=== PATIENT | female | born 1975 | race Caucasian/White ===

== ENCOUNTER 2024-02-28 05:16 | Inpatient (IN) | payer OTHER, SELFPAY ==
[2024-02-27 23:08] VITALS: BMI 29.6
[2024-02-27 23:09] VITALS: BP 150/80
[2024-02-28 02:00] VITALS: BP 123/68
--- NOTE | 2024-02-28 02:03 | ED.GENMED ---
History of Present Illness
General
Chief Complaint: Urinary Symptoms
Source: patient
Exam Limitations: none
Time Seen by Provider: 02/28/24 01:26
History of Present Illness
History of Present Illness:
This is a 48 year old female that comes in with c/o constipation and not being able to urinate. States that she has the urge to go but can't go. States that she has had trouble ever since her surgery on January 15. States that she has had some liquid
stool that just squirts out. States that she tried an enema but this was very difficult. States that she has a headache. Denies any fever, chills, chest pain, SOB, nausea, vomiting, dizziness, urinary burning.
Past History
Past History
ED Past Medical History: None; Negative Asthma, HTN, Hypercholesterolemia or NIDDM
ED Past Surgical History: Gynecological (Uterine ablation), Orthopedic (Carpal tunnel right) and Other (Hemorrhoidectomy 2023)
Social History
Tobacco: Former smoker
Alcohol: None
Personal:
Living: with family
Review of Systems
Review of Systems
All Other Systems: ROS reviewed and negative except as documented in HPI and ROS
Constitutional: Reports no symptoms; Denies fever or chills
EENT: Reports no symptoms
Respiratory: Reports no symptoms; Denies cough or trouble breathing
Cardiac: Reports no symptoms; Denies chest pain
ABD/GI: Reports abdominal pain and constipated; Denies nausea, vomiting or diarrhea
: Reports difficulty voiding; Denies dysuria, frequency or urgency
Musculoskeletal: Reports no symptoms
Skin: Reports no symptoms
Neurological: Reports headache; Denies dizzy
Psychiatric: Reports no symptoms
Phy Exam
General Physical Exam
General Presentation: mild distress
General age: appears stated age
General Skin: warm and dry
General Habitus: normal
General Mental: alert
General Hydration: appears well hydrated
ENT Exam
ENT Exam: TM's normal, pharynx normal and neck supple
Eye Exam
Eye Exam: EOMI
Cardiovascular Exam
Cardiovascular Exam: regular rate/rhythm, no edema, no murmur and normal peripheral pulses
Pulmonary Exam
Pulmonary Exam: lungs clear, no respiratory distress, no rales, chest non tender, no crackles, no rhonchi, no wheezing and no cough
Gastrointestinal Exam
Gastrointestinal Exam: normal bowel sounds, non tender, soft, no organomegaly, no pulsatile mass, non distended and other (attempted rectal exam but unable to fit finger in rectal opening. )
Musculoskeletal Exam
Musculoskeletal Exam: full ROM and no edema
Skin Exam
Skin Exam: normal color, warm/dry, no rash and no petechia
Psychiatric Exam
Psychiatric Exam: normal mood/affect
Course
Orders/Labs/Results
Orders:
Orders
02/28/24 02:02
Obstruct Series W/PA Chest [CR Obstruct Series W/pa Chest] Urgent
Comment:
Reason For Exam: constipation, NO BP for 9 days.
02/28/24 02:03
Livingston Placement- Treatment ONCE
Reason for insertion: Acute Retention
02/28/24 02:06
Complete Blood Count/With Diff Urgent
Comprehensive Metabolic Panel Urgent
Urinalysis Reflex To Culture Urgent
Date Specimen was Collected: 02/28/24
Time Specimen was Collected: 02:05
Urine Microscopic Reflex Cult Urgent
Urine Culture Urgent
BELKIS Source: U
Specimen Description:
Date Specimen was Collected: 02/28/24
Time Specimen was Collected: 02:05
02/28/24 03:10
Enema- Treatment ONCE
Type: Milk of Molasses
02/28/24 03:44
CefTRIAXone [Rocephin] 1,000 mg IV NOW STA
02/28/24 04:22
CT Abd/pelvis W Iv Cont Urgent
Comment:
Reason For Exam: Constipation. abd pain
Abnormal Lab Results
02/28/24
02:06
WBC 11.5 H 10^3/uL
(4.8-10.8)
MPV 11.3 H fL
(7.4-10.4)
Absolute Neuts (auto) 7.4 H 10^3/uL
(1.4-6.5)
Absolute Monos (auto) 1.1 H 10^3/uL
(0.1-0.6)
Monocytes % 9.8 H %
(1.7-9.3)
Glucose 109 H mg/dl
(70-99)
Total Bilirubin 2.3 H mg/dl
(0.2-1.3)
Ur Occult Blood Reflex Trace A
(Negative)
Urine WBC (Reflex) >100 A /HPF
(0-5)
Urine Bacteria (Reflex) Many A
(Negative)
02/28/24 02:06
02/28/24 02:06
WBC Slightly elevated. Glucose nonfasting. Total georgina elevation. Urine negative for infection. Urine positive for infection.
Vital Signs
Initial and Last Documented VS:
Initial Vital Signs
Temp Pulse Resp BP Pulse Ox
97.7 F 102 18 150/80 99
02/27/24 23:09 02/27/24 23:09 02/27/24 23:09 02/27/24 23:09 02/27/24 23:09
Last Documented Vital Signs
Temp Pulse Resp BP Pulse Ox
97.7 F 89 20 123/68 97
02/27/24 23:09 02/28/24 02:00 02/28/24 02:00 02/28/24 02:04 02/28/24 02:45
MDM/Problems Addressed
Differential Diagnosis Includes:
Urinary retention. Constipation
MDM/Problems Addressed:
This is a 48 year old female that comes in with c/o constipation and not being able to urine. States that since her surgery on January 15 she has had difficulty urinating of Pooping. States that tonight she had lower abd pain.
will check. labs. Bladder scan and Obstruction series.
patient had urinary retention to livingston catheter was placed. There is a large stool ball in the rectal area noted. Will give enema.
Patient is unable to have a BM even after the enema. Patient continues to have bowel spasm and has not been able to go. Will admit and get CT scan.
Chronic conditions affecting care:
NA
Acute Exacerbation and/or Progression of Chronic Illness:
NA
*Radiology
Radiology exam reviewed: preliminary read by ED provider (Obstruction series- Negative for cardiopulmonary disease. Constipation)
*Pulse Oximetry
Patient hypoxic: no
*EKG
Interpreted by ED Provider?: NA
Rate: EKG- N/A
*Carburizing Furnace Operator Interpretation
Rate: Carburizing Furnace Operator- N/A
*Critical Care Note
Total Time (30-74mins, 75-104mins- exclusive of procedures): Not Applicable
ED Attending Note
-
Portions of this chart may have been created with voice recognition software.� Occasional wrong word or��sound alike� substitutions may have occurred due to the inherent limitations of voice recognition software.
Discharge Plan
Departure
Patient Disposition: Admit
Date of Disposition: 02/28/24
Time of Disposition: 04:29
Admit to: Med/Surg
Presentation/result/management discussed w/ accepting MD/DO: Hospitalist
Patient with high blood pressure during this ER visit?: No
Condition: Good
Covid-19: Not Applicable
Discharge Problem:
Acute urinary retention, Urinary tract infection, Spasm of bowel, Obstipation
Prescriptions:
New
cefdinir 300 mg capsule
300 mg PO BID Qty: 14 0RF
Referrals:
PRIVATE,PHYSICIAN [Family Provider] -
Interventions
Interventions:
ED- Fall Risk Assessment Last Done: 02/28/24 02:08
HW-Tmqssg-Pyldcwasbl Assessment Last Done: 02/28/24 02:08
ED-Female Genitourinary Assessment Last Done: 02/28/24 02:08
Discharge Date and Time
Print Language: SCOTTISH
[2024-02-28 02:04] VITALS: BP 123/68
[2024-02-28 02:24] LABS: % Basophils 0.5 % (0-2); % Eosinophils 0.7 % (0-6); % Immature Granulocytes 0.3 % (0-0.5); % Lymphocytes 24.5 % (20.5-51.1); % Monocytes 9.8 % (1.7-9.3); % Neutrophils 64.2 % (42.2-75.2); Absolute Basophils 0.1 10^3/uL (0-0.2); Absolute Eosinophils 0.1 10^3/uL (0-0.7); Absolute Lymphocytes 2.8 10^3/uL (1.2-3.4); Absolute Monocytes 1.1 10^3/uL (0.1-0.6); Absolute Neutrophils 7.4 10^3/uL (1.4-6.5); Hematocrit 37.3 % (37.0-47.0); Hemoglobin 13.2 g/dL (12.0-16.0); Mean Corp Hgb Conc. 35.4 g/dL (33.0-37.0); Mean Corpuscular Hgb 28.9 pg (27.0-31.0); Mean Corpuscular Volume 81.8 fL (81.0-99.0); Mean Platelet Volume 11.3 fL (7.4-10.4); Nucleated Red Blood Cells % 0 %; Platelet Count 271 10^3/uL (130-400); Red Blood Cell Count 4.56 10^6/uL (4.20-5.40); Red Cell Dist. Width 12.7 % (11.5-14.5); White Blood Cell Count 11.5 10^3/uL (4.8-10.8)
[2024-02-28 02:27] LABS: ALT (SGPT) 16 U/L (0-35); AST (SGOT) 21 U/L (14-36); Albumin 4.4 g/dl (3.5-5.0); Alkaline Phosphatase 88 U/L (38-126); Blood Urea Nitrogen 15 mg/dl (7-17); Calcium 10.1 mg/dl (8.4-10.2); Carbon Dioxide 29 mmol/L (22-30); Chloride 104 mmol/L (98-107); Estimated Creatinine Clearance 116 ml/min; Glucose 109 mg/dl (70-99); Potassium 4.1 mmol/L (3.5-5.1); Sodium 142 mmol/L (135-145); Total Bilirubin 2.3 mg/dl (0.2-1.3); Total Protein 7.4 g/dl (6.3-8.2); eGFR > 60.00
[2024-02-28 02:30] LABS: Urine Albumin Negative (Neg - Trace); Urine Bilirubin Negative (Negative); Urine Character Slightly Cloudy (Clear); Urine Color Yellow; Urine Glucose Negative (Negative); Urine Ketone Negative (Negative); Urine Leukocyte Negative (Negative); Urine Nitrite Negative (Negative); Urine Occult Blood Trace (Negative); Urine Specific Gravity 1.015 (<1.030); Urine Urobilinogen Negative (Neg - 1+)
[2024-02-28 03:09] LABS: Urine Bacteria Many (Negative)
[2024-02-28 03:10] LABS: Urine Squamous Cell >30 /LPF (Few)
[2024-02-28 03:11] LABS: Urine Mucus Moderate; Urine White Cell >100 /HPF (0-5)
[2024-02-28] MEDS: ROCEPHIN 1000 MG IV (04:38)
--- NOTE | 2024-02-28 05:08 | HPS.HSE ---
Family Physician
-
Family Physician: PHYSICIAN PRIVATE
Chief Complaint
-
Inability to pass urine or stool
History of Present Illness
Patient is a 48y F with PMH significant for hemorrhoids s/p surgery on January 15 who presents to ED complaining of inability to pass stool or urinate. Patient notes that she had hemorrhoidectomy in [place] on 01/16/[address] Li. She
maintained a liquid diet for about 2 weeks after the surgery. She controlled her pain with only Tylenol and Advil - no narcotic medications. She advanced her diet and had some loose stools for about one week.
For the past 9 days, she has had difficulty moving her bowels. She has had building pain / pressure in the rectum / perineum. She has produced very small caliber or small volume liquid stools over that time frame. She has also experienced
difficulty passing urine. This evening patient had worsening discomfort and was unable to pass any urine and presented to the ED for further evaluation.
Patient was noted to be retaining urine and a Benítez catheter was placed in the ED for 1400cc of urine.
Exam / obstruction series reveals rectal stool ball. ED physician performed rectal exam and noted rectal spasm with small caliber / tender sphincter. No bleeding / discharge.
Medical History
Past Medical History
Past Medical History: Reports Other
Additional Past Medical History:
Hemorrhoids
Past Surgical History: Reports Other
Additional Past Surgical History:
Hemorrhoidectomy (01/16/24)
Carpal Tunnel Release
Endometrial Ablation
Social History
Tobacco: Former Smoker (Quit smoking 8 years ago. Approx 10 pack years total.)
Alcohol: None
Drug: None
Family History
Family History: Other (Father: DM, HTN Mother: DM, HTN)
Allergies / Home Medications
Allergies reflects when Allergies were last updated in [facility].
Home Medications with original date entered in [facility]
Allergy/Medication List:
Allergies
Allergy/AdvReac Type Severity Reaction Status Date / Time
No Known Allergies Allergy Verified 02/27/24 23:11
Home Medications
No Meds [No Current Medications] 02/28/24
Review of Systems
-
History Source: Patient
A 12 point ROS was completed and negative except as noted: Yes
Constitutional: Denies Fever or Chills
EENT: Denies Sore Throat
Respiratory: Denies Cough or Trouble Breathing
Cardiac: Denies Chest Pain or Palpitations
Abdomen/GI: Reports Abdominal Pain and Constipated; Denies Nausea, Vomiting, Diarrhea, Bloody Stools or Black Stools
: Reports Difficulty Voiding; Denies Dysuria or Frequency
Musculoskeletal: Denies Joint Pain or Edema
Neurological: Denies Dizzy or Headache
Psych: Denies Depression or Anxiety
Physical Exam
Vital Signs
Vital Signs
Temp Pulse Resp BP Pulse Ox
97.7 F 89 20 123/68 97
02/27/24 23:09 02/28/24 02:00 02/28/24 02:00 02/28/24 02:04 02/28/24 02:45
Physical Exam
General: Other (48y F in no acute distress.)
HEENT: Moist mucous membranes and PERRLA
Respiratory: Clear; No Wheezes, Rales or Rhonchi
Cardiac: S1/S2 and Regular Rhythm; No Murmur
GI: Soft, Non Distended, Normal Bowel Sounds and Other (Mild lower abdominal tenderness.)
Musculoskeletal: No Clubbing, No Cyanosis and No Edema
Neuro: AO x 3
Laboratory Results
-
02/28/24 02:06
02/28/24 02:06
Laboratory Results
Total Bilirubin 2.3 mg/dl (0.2-1.3) H 02/28/24 02:06
AST 21 U/L (14-36) 02/28/24 02:06
ALT 16 U/L (0-35) 02/28/24 02:06
Alkaline Phosphatase 88 U/L (38-126) 02/28/24 02:06
Impression/Plan
-
A/P: Patient is a 48y F with PMH significant for hemorrhoids s/p recent hemorrhoidectomy who presents to ED complaining of difficulty passing stool or urine.
Fecal Impaction / Rectal Stool Ball
- Admit for further evaluation and treatment.
- Patient with rectal spasm appreciated on exam - unable to attempt manual disimpaction due to discomfort / spasticity.
- Continue with bowel regimen, enemas, suppositories, etc.
- Colorectal Surgery evaluation.
- ? may require exam / disimpaction under anesthesia if no results with above.
Urinary Retention
- Secondary to the above.
- Benítez placed for acute retention - maintain for now.
- UA appears contaminated - follow-up culture data.
- Tamsulosin daily.
- TOV after constipation / fecal impaction issue is resolved.
DVT Prophylaxis: SCDs
Code Status: Full
[2024-02-28] MEDS: GLYCERIN SUPPOSITORY ADULT 1 SUPP RECTAL (05:47)
[2024-02-28 05:56] VITALS: BMI 27.9
[2024-02-28] MEDS: NSS 1000 IV ×2 (06:10→17:05)
[2024-02-28 06:14] VITALS: BP 139/72
[2024-02-28] MEDS: TORADOL 10 MG IV ×2 (06:27→20:26)
[2024-02-28 07:00] LABS: Hematocrit 38.6 % (37.0-47.0); Hemoglobin 13.3 g/dL (12.0-16.0); Mean Corp Hgb Conc. 34.5 g/dL (33.0-37.0); Mean Corpuscular Hgb 29.3 pg (27.0-31.0); Mean Platelet Volume 11.4 fL (7.4-10.4); Platelet Count 241 10^3/uL (130-400); Red Blood Cell Count 4.54 10^6/uL (4.20-5.40); Red Cell Dist. Width 12.6 % (11.5-14.5)
[2024-02-28 07:02] VITALS: BP 139/72
[2024-02-28 07:28] LABS: Blood Urea Nitrogen 14 mg/dl (7-17); Calcium 9.9 mg/dl (8.4-10.2); Carbon Dioxide 28 mmol/L (22-30); Chloride 104 mmol/L (98-107); Estimated Creatinine Clearance 112 ml/min; Glucose 106 mg/dl (70-99); Potassium 3.8 mmol/L (3.5-5.1); Sodium 142 mmol/L (135-145); eGFR > 60.00
[2024-02-28 07:30] VITALS: BP 123/79
[2024-02-28] MEDS: COLACE 100 MG PO ×2 (08:39→19:40)
[2024-02-28] MEDS: MIRALAX 17 GRAMS PO (08:39)
[2024-02-28] MEDS: FLOMAX 0.4 MG PO (08:39)
--- NOTE | 2024-02-28 11:48 | CON.CRS ---
Addendum entered and electronically signed by Rajendra Abdalla MD 02/28/24 14:45:
I saw and examined the patient independently.
The [employer]'s note was reviewed and I agree with the note, assessment and plan except where noted below.
Comment: This is a 48-year-old female with a recent hemorrhoidectomy who presents with both urinary and fecal retention. She has not had a stool in 9 days. She has tried multiple modalities, she was not able to tolerate a digital rectal exam or
attempted bedside disimpaction.
Okay for clear liquid diet
Will try mag citrate and continue her other bowel regimen modalities today.
She is added on the schedule for tomorrow for exam under anesthesia/rectal disimpaction pending clinical course and or availability.
I spent roughly 55 minutes in total for the care of this patient today including direct patient care and counseling, reviewing labs, imaging, coordination of care, as well as documentation.
Original Note:
Consultation
-
Date/Time Consultation Requested: 02/28/24 0558
Requesting Provider: Sonu
Reason for Consultation: Fecal Impaction, s/p Hemorrhoidectomy
Medical History
-
Chief Complaint: Constipation
History of Present Illness:
This is a 48 yo female with a h/o recent hemorrhoidectomy on 01/16/24 with CRS in [place] who has had difficulty with passage of stools since the procedure. She notes initially, she was doing well but developed diarrhea followed by constipation.
She followed up with her provider at the end of January and notes no abnormal findings on her exam. She notes that for the last 9 days, she has been unable to have a BM. She has been able to pass flatus and some small amounts of liquid but no real
BM's. She has tried enemas, sennakot and miralax at home without much benefit. She notes she received an enema last night in the ED without results as well. She has also began having difficulty voiding with a livingston catheter placed last night in the
ED. She is tender to the rectum and was unable to tolerate a full VANCE or any disimpaction upon exam.
Past Medical History
Past Medical History: Other (Hemorrhoids)
Past Surgical History: Gynecological (endometrial ablation), Orthopedic (carpal tunnel release) and Other (Hemorrhoidectomy 01/16/24)
Social History
Tobacco: Former Smoker
Alcohol: None
Family History
Family History: Diabetes
Allergies / Home Medications
Allergy/AdvReac Type Severity Reaction Status Date / Time
No Known Allergies Allergy Verified 02/27/24 23:11
�Medication �Instructions �Recorded �Confirmed �Type
No Meds [No Current Medications] 02/28/24 02/28/24 History
Review of Systems
-
History Source: Patient
All other systems: Negative unless noted
A 10 point review of systems was completed, and was negative except as per HPI.
Physical Exam
Vital Signs
Temp 97.8 F 02/28/24 07:30
Pulse 84 02/28/24 07:30
Resp Rate 14 02/28/24 07:30
Blood pressure 123/79 02/28/24 07:30
SaO2 100 02/28/24 07:30
02/27/24 02/28/24 02/29/24
06:59 06:59 06:59
Actual Weight 83.092 kg
Body Mass Index (BMI) 27.9
Lab Results / Allergies
02/28/24 06:44
02/28/24 06:44
WBC 12.0 10^3/uL (4.8-10.8) H 02/28/24 06:44
Hgb 13.3 g/dL (12.0-16.0) 02/28/24 06:44
Hct 38.6 % (37.0-47.0) 02/28/24 06:44
Plt Count 241 10^3/uL (130-400) 02/28/24 06:44
Abs Immat Gran (auto) 0.0 10^3/uL (0-0.05) 02/28/24 02:06
Neutrophils % 64.2 % (42.2-75.2) 02/28/24 02:06
Allergy/AdvReac Type Severity Reaction Status Date / Time
No Known Allergies Allergy Verified 02/27/24 23:11
Physical Exam
General: Well Developed and Well Nourished
HEENT: Moist Mucous Membranes
Respiratory: Accessory Resp Muscle Use
GI: Soft, Non Tender and Distended (mild)
Rectal: Brown and Other (Unable to complete full exam d/t pain); Negative Masses Palpated
Skin: Warm and Dry
Neuro: Awake, Alert and AO x 3
Psych: Calm
Data Reviewed
-
Radiology: Image Personally Visualized and interpreted, Report Reviewed by me and Discussed with Nurse
Labs: Labs Reviewed by me, Discussed with Physician and Discussed with Patient
Assessment / Plan
-
48 yo female with recent hemorrhoidectomy on 01/16/24 in [place] presenting with obstipation and no stools x9 days. Disimpaction unable to be preformed at bedside d/t pain with VANCE.
AFVSS. Mild leukocytosis present.
Continue CLD
Give Mag Citrate x 1 bottle
May need disimpaction in the OR under sedation if unable to pass any stools by tomorrow, will make NPO after MN in case this is needed
[2024-02-28] MEDS: CITROMA 300 ML PO ×2 (12:30→17:05)
[2024-02-28] MEDS: TYLENOL 650 MG PO (13:16)
--- NOTE | 2024-02-28 13:43 | W.PN.HOSP.TC ---
Addendum entered and electronically signed by Aime Abbott DO 02/29/24 10:54:
Elevated indirect bilirubin: Differentials include Gilbert syndrome versus affective severe constipation. Labs are stable, no signs of hemolysis. Trend LFTs while here
Leukocytosis: Suspect reactive in the context of her recent fecal impaction and manipulation of the rectum. No fevers or signs of infection currently. Will monitor CBC and temperature curve.
Original Note:
Today's Communication/Plan
-
Trial of magnesium citrate
N.p.o. after midnight for possible disimpaction with anesthesia tomorrow
Assessment / Plan
Assessment / Plan
#Fecal Impaction / Rectal Stool Ball
-Has had narrow caliber stools, diarrhea since procedure for hemorrhoids
-Was on liquid diet after procedure then advance to food solids with constipation thereafter
-Was evaluated by colorectal surgery, started mag citrate today
-May require disimpaction under general anesthesia tomorrow
-Continue with bowel regimen, CLD
-N.p.o. after midnight
#Urinary Retention
-Secondary to fecal impaction as above
-Status post Benítez catheter
-Plan for TOV after fecal impaction resolved
DVT Prophylaxis: SCDs
Diet: CLD, n.p.o. after midnight
Code Status: Full
Anticipated Discharge: 24 - 48 hours
Subjective/Interval History
-
Date of Service: February 28, 2024
Seen and examined at bedside. No acute events overnight.
As of this morning she still has pain related to her constipation. Has yet to have bowel movement. Had severe discomfort when disimpaction was attempted, also with severe discomfort due to suppository placement.
She otherwise denies chest pain, shortness of breath, fevers or chills, nausea or vomiting, abnormal bleeding or bruising, paresthesias or weakness.
Objective Data
-
Labs:
Laboratory Results
02/28/24 02/28/24
02:06 06:44
WBC 11.5 H 12.0 H
Hgb 13.2 13.3
Hct 37.3 38.6
Plt Count 271 241
Sodium 142 142
Potassium 4.1 3.8
Chloride 104 104
Carbon Dioxide 29 28
BUN 15 14
Creatinine 0.7 0.7
Glucose 109 H 106 H
Calcium 10.1 9.9
Total Bilirubin 2.3 H
AST 21
ALT 16
Alkaline Phosphatase 88
Vital Signs:
Vital Signs
Temp Pulse Resp BP Pulse Ox
97.8 F 84 14 123/79 100
02/28/24 07:30 02/28/24 07:30 02/28/24 07:30 02/28/24 07:30 02/28/24 07:30
Review of Systems
-
History Source: Patient
All other systems: Reviewed and negative
Physical Exam
-
General: No Apparent Distress and Pain
HEENT: Normocephalic, Atraumatic and Moist Mucous Membranes
Respiratory: Clear to Auscultation and Non Labored Respirations
Cardiac: Regular Rhythm and S1/S2; Negative Murmur, Rub or Gallop
GI: Soft, Nondistended, Normal Bowel Sounds and Tender (Mild, worst in RLQ, no peritoneal signs)
Musculoskeletal: No Clubbing, No Cyanosis and No Edema
Skin: Warm and Dry; Negative Rash
Neuro: AO x 3, Nonfocal/Grossly Intact and Central Nerve's Intact
Data Reviewed
-
Labs: Labs Reviewed by me
--- NOTE | 2024-02-28 14:01 | CM ---
Reviewed the chart notes and spoke with the patient at the bedside. The patient resides with her significant other in a two story home with no steps to enter. The patient reports no DME/VN/SNF in the past. The patient confirmed her pharmacy of
choice is [facility]. The patient's discharge plans will depend on the patient's progress. CM continues to be available to patient/family and is monitoring medical plan for needs at discharge.
Plan: Discharge plans will depend on the patient's progress.
[2024-02-28 15:44] VITALS: BP 117/61
[2024-02-28] MEDS: MYLICON 80 MG PO (20:27)
[2024-02-28] MEDS: SENOKOT 17.2 MG PO (21:36)
[2024-02-29 00:07] VITALS: BP 135/85
[2024-02-29] MEDS: NSS 1000 IV ×2 (02:10→13:34)
[2024-02-29] MEDS: DILAUDID 0.5 MG IV (02:17)
[2024-02-29 07:16] LABS: INR 1.07; PT 13.7 Sec (11.4-14.6)
[2024-02-29 07:17] LABS: % Basophils 0.5 % (0-2); % Eosinophils 0.7 % (0-6); % Immature Granulocytes 0.3 % (0-0.5); % Lymphocytes 18.4 % (20.5-51.1); % Monocytes 8.8 % (1.7-9.3); % Neutrophils 71.3 % (42.2-75.2); APTT 31.8 Sec (23.4-35.0); Absolute Basophils 0.1 10^3/uL (0-0.2); Absolute Eosinophils 0.1 10^3/uL (0-0.7); Absolute Lymphocytes 2.3 10^3/uL (1.2-3.4); Absolute Monocytes 1.1 10^3/uL (0.1-0.6); Absolute Neutrophils 9.1 10^3/uL (1.4-6.5); Hematocrit 37.6 % (37.0-47.0); Hemoglobin 13.1 g/dL (12.0-16.0); Mean Corp Hgb Conc. 34.8 g/dL (33.0-37.0); Mean Corpuscular Hgb 29.6 pg (27.0-31.0); Mean Corpuscular Volume 84.9 fL (81.0-99.0); Mean Platelet Volume 11.6 fL (7.4-10.4); Nucleated Red Blood Cells % 0 %; Platelet Count 256 10^3/uL (130-400); Red Blood Cell Count 4.43 10^6/uL (4.20-5.40); Red Cell Dist. Width 12.6 % (11.5-14.5); White Blood Cell Count 12.7 10^3/uL (4.8-10.8)
[2024-02-29 07:30] VITALS: BP 135/77
[2024-02-29 07:34] LABS: ALT (SGPT) 16 U/L (0-35); AST (SGOT) 22 U/L (14-36); Albumin 4.5 g/dl (3.5-5.0); Alkaline Phosphatase 77 U/L (38-126); Blood Urea Nitrogen 11 mg/dl (7-17); Carbon Dioxide 26 mmol/L (22-30); Chloride 106 mmol/L (98-107); Direct Bilirubin 0.2 mg/dl (0.0-0.4); Estimated Creatinine Clearance 112 ml/min; Glucose 114 mg/dl (70-99); Potassium 4.4 mmol/L (3.5-5.1); Sodium 142 mmol/L (135-145); Total Protein 7.4 g/dl (6.3-8.2); eGFR > 60.00
[2024-02-29] MEDS: FLOMAX 0.4 MG PO (08:00)
[2024-02-29] MEDS: COLACE 100 MG PO ×2 (08:06→20:52)
[2024-02-29] MEDS: MIRALAX 17 GRAMS PO (08:06)
--- NOTE | 2024-02-29 09:37 | W.PN.GS2 ---
Addendum entered and electronically signed by Rajendra Abdalla MD 02/29/24 11:07:
I saw and examined the patient independently.
The Certified Histologic Technician's note was reviewed and I agree with the note, assessment and plan except where noted below.
Comment: 48-year-old female recent 3 column hemorrhoidectomy at an outside hospital presents with urinary and fecal retention.
Has responded well to mag citrate with 3 large bowel movements however still mostly liquid.
Will get a follow-up x-ray
Continue with bowel regimen today
Okay to do a trial of void, will defer to primary
Okay for full liquid diet
Continue to trend CBC
Anticipate discharge home early tomorrow if she continues to have good recovery of bowel function
Original Note:
Today's Communication / Plan
-
FLD
Bowel regimen
Assessment / Plan
-
48-year-old female with a recent hemorrhoidectomy x3 who presents with both urinary and fecal retention
AFVSS
Labs stable, mild leukocytosis persists
+Stools with mag citrate/bowel regimen
Follow up XR with air/stool still present but improved
--Advance to FLD
--Continue bowel regimen
--No plans for OR today
Subjective Data
-
Date of Service: February 29, 2024
Patient seen and examined at bedside with Dr. Abdalla. Denies n/v. Tolerating clears. Passed initially some hard rocks of stool and then liquid stool. Pain much improved.
Objective Data
-
Intake and Output
02/28/24 02/29/24 03/01/24
06:59 06:59 06:59
Intake Total 2160 / 2160
Output Total 1100 / 1100
Balance 1060 / 1060
Intake:
Oral fluids 960 / 960
IV fluids (Total) 1200 / 1200
Output:
Urine, Benítez 400 / 400
Urine, Voided 700 / 700
Vital Signs
Temp Pulse Resp BP Pulse Ox
98.1 F 98 16 135/77 98
02/29/24 07:30 02/29/24 07:30 02/29/24 07:30 02/29/24 07:30 02/29/24 07:30
Lab Results
02/29/24 06:48
02/29/24 06:48
Calcium 10.0 mg/dl (8.4-10.2) 02/29/24 06:48
Total Bilirubin 2.0 mg/dl (0.2-1.3) H 02/29/24 06:48
Direct Bilirubin 0.2 mg/dl (0.0-0.4) 02/29/24 06:48
AST 22 U/L (14-36) 02/29/24 06:48
ALT 16 U/L (0-35) 02/29/24 06:48
Alkaline Phosphatase 77 U/L (38-126) 02/29/24 06:48
Total Protein 7.4 g/dl (6.3-8.2) 02/29/24 06:48
Albumin 4.5 g/dl (3.5-5.0) 02/29/24 06:48
Physical Exam
-
NAD
ABD soft, nt, nd
Benítez with clear yellow urine
--- NOTE | 2024-02-29 10:49 | W.PN.HOSP.TC ---
Today's Communication/Plan
-
Trial of void
Continue with bowel regimen
Advance diet as she tolerates
Likely DC within next 24 hours
Assessment / Plan
Assessment / Plan
#Fecal Impaction / Rectal Stool Ball
-Has had narrow caliber stools, diarrhea since procedure for hemorrhoids
-Was on liquid diet after procedure then advance to food solids with constipation thereafter
-Was evaluated by colorectal surgery, started mag citrate with multiple BMs this morning
-Abdominal x-ray shows resolved impaction, mild stool burden in the colon
-Will continue on bowel regimen and monitor clinically
-Advance diet as tolerated
#Urinary Retention
-Secondary to fecal impaction as above
-Plan for trial of void to start now
DVT Prophylaxis: SCDs
Diet: CLD, n.p.o. after midnight
Code Status: Full
Anticipated Discharge: Within 24 hours
Subjective/Interval History
-
Date of Service: February 29, 2024
Seen and examined at the bedside. No acute events reported. She did have multiple bowel movements this morning. Repeat abdominal x-ray is showing no signs of fecal impaction, only mild fecal material remaining in the colon. Benítez catheter to be
removed
The patient states she feels much better, does have some discomfort rectally related to her previous constipation now frequent bowel movement. Otherwise denies any acute complaints including chest pain, shortness of breath, fevers or chills,
nausea, vomiting, bleeding or bruising, paresthesias or weakness, urinary issues.
Objective Data
-
Labs:
Laboratory Results
02/29/24
06:48
WBC 12.7 H
Hgb 13.1
Hct 37.6
Plt Count 256
PT 13.7
INR 1.07
APTT 31.8
Sodium 142
Potassium 4.4
Chloride 106
Carbon Dioxide 26
BUN 11
Creatinine 0.7
Glucose 114 H
Calcium 10.0
Total Bilirubin 2.0 H
AST 22
ALT 16
Alkaline Phosphatase 77
Vital Signs:
Vital Signs
Temp Pulse Resp BP Pulse Ox
98.1 F 98 16 135/77 98
02/29/24 07:30 02/29/24 07:30 02/29/24 07:30 02/29/24 07:30 02/29/24 07:30
I&O
02/28/24 02/29/24 03/01/24
06:59 06:59 06:59
Intake Total 2160 / 2160
Output Total 1100 / 1100
Balance 1060 / 1060
Review of Systems
-
History Source: Patient
All other systems: Reviewed and negative
Physical Exam
-
General: Well Nourished, No Apparent Distress and Comfortable
HEENT: Normocephalic, Atraumatic and Moist Mucous Membranes
Respiratory: Clear to Auscultation and Non Labored Respirations; Negative Accessory Resp Muscle Use
Cardiac: Regular Rhythm and S1/S2; Negative Murmur, Rub or Gallop
GI: Soft, Nondistended, Normal Bowel Sounds and Tender (Very mild, RLQ)
Genito-urinary: Clear Urine and Benítez
Musculoskeletal: No Clubbing, No Cyanosis and No Edema
Skin: Warm and Dry; Negative Rash
Neuro: AO x 3, Nonfocal/Grossly Intact and Central Nerve's Intact; Negative Tremors
Data Reviewed
-
Diagnostic Radiology: Image personally visualized and interpreted and Report Reviewed by me
Labs: Labs Reviewed by me and Discussed with Patient
[2024-02-29] MEDS: NUPERCAINAL 1% OINTMENT 1 APPLIC TOPICAL (12:56)
[2024-02-29] MEDS: ROCEPHIN 1000 MG IV (13:40)
[2024-02-29] MEDS: STERILE WATER FOR INJECTION 10 ML IV (13:40)
[2024-02-29 15:50] VITALS: BP 102/66
[2024-02-29] MEDS: SENOKOT 17.2 MG PO (21:33)
[2024-02-29 23:33] VITALS: BP 101/62
[2024-03-01 07:25] VITALS: BP 105/65
[2024-03-01 08:31] LABS: % Basophils 0.8 % (0-2); % Immature Granulocytes 0.3 % (0-0.5); % Lymphocytes 35.3 % (20.5-51.1); % Monocytes 11.2 % (1.7-9.3); % Neutrophils 50.4 % (42.2-75.2); Absolute Basophils 0.1 10^3/uL (0-0.2); Absolute Eosinophils 0.1 10^3/uL (0-0.7); Absolute Lymphocytes 2.1 10^3/uL (1.2-3.4); Absolute Monocytes 0.7 10^3/uL (0.1-0.6); Hematocrit 32.2 % (37.0-47.0); Mean Corp Hgb Conc. 34.2 g/dL (33.0-37.0); Mean Corpuscular Hgb 28.9 pg (27.0-31.0); Mean Corpuscular Volume 84.7 fL (81.0-99.0); Mean Platelet Volume 11.4 fL (7.4-10.4); Nucleated Red Blood Cells % 0 %; Platelet Count 214 10^3/uL (130-400); White Blood Cell Count 5.9 10^3/uL (4.8-10.8)
[2024-03-01] MEDS: FLOMAX 0.4 MG PO (08:33)
[2024-03-01] MEDS: MIRALAX 17 GRAMS PO (08:33)
[2024-03-01] MEDS: COLACE 100 MG PO (08:33)
--- NOTE | 2024-03-01 09:06 | W.PN.GS2 ---
Addendum entered and electronically signed by Rajendra Abdalla MD 03/01/24 18:27:
In regards to CDI query:
It is likely the patient's urinary and fecal retention is secondary to her recent 3 column hemorrhoidectomy.
Addendum entered and electronically signed by Rajendra Abdalla MD 03/01/24 09:30:
I saw and examined the patient independently.
The resident's note was reviewed and I agree with the note, assessment and plan except where noted below.
Comment: Okay to discharge home today on a regular diet. Encouraged good p.o. intake of fiber and liquids.
Patient will follow-up with her surgeon tomorrow.
Original Note:
Today's Communication / Plan
-
Patient to be transitioned to regular diet. Patient to be discharged today if she remains stable.
Assessment / Plan
-
Assessment:
48-year-old female with a recent hemorrhoidectomy x3 who presented with both urinary and fecal retention, Patient was started on bowel regimen which has improved her symptoms.
Plan:
AFVSS
Labs stable, mild leukocytosis has resolved
+Stools with mag citrate/bowel regimen, last bowel movement 4pm yesterday
XR showed stool still present but improved, no impaction noted on XR
--Plans to discharge if patient continues to be stable
--Advance diet to regular diet as tolerated
--Continue bowel regimen after discharge
--No plans for OR today
Subjective Data
-
Date of Service: March 01, 2024
Patient has been feeling well, complains of no overnight events, has been passing gas and says her last bowel movement was 4pm yesterday and describes it as soft and watery.
Objective Data
-
Intake and Output
02/29/24 03/01/24 03/02/24
06:59 06:59 06:59
Intake Total 2160 / 2160 1320 / 1320
Output Total 1100 / 1100 450 / 450
Balance 1060 / 1060 870 / 870
Intake:
Oral fluids 960 / 960 1320 / 1320
IV fluids (Total) 1200 / 1200
Output:
Urine, Benítez 400 / 400 450 / 450
Urine, Voided 700 / 700
Other:
Number of approximated MODERATE 2
amounts of urine
Number of approximated LARGE 1
amounts of urine
Number of unmeasured liquid
stools
Rectum 7
Vital Signs
Temp Pulse Resp BP Pulse Ox
98.2 F 76 18 105/65 99
03/01/24 07:25 03/01/24 07:25 03/01/24 07:25 03/01/24 07:25 03/01/24 07:25
Lab Results
03/01/24 08:00
02/29/24 06:48
Calcium 10.0 mg/dl (8.4-10.2) 02/29/24 06:48
Total Bilirubin 2.0 mg/dl (0.2-1.3) H 02/29/24 06:48
Direct Bilirubin 0.2 mg/dl (0.0-0.4) 02/29/24 06:48
AST 22 U/L (14-36) 02/29/24 06:48
ALT 16 U/L (0-35) 02/29/24 06:48
Alkaline Phosphatase 77 U/L (38-126) 02/29/24 06:48
Total Protein 7.4 g/dl (6.3-8.2) 02/29/24 06:48
Albumin 4.5 g/dl (3.5-5.0) 02/29/24 06:48
Physical Exam
-
NAD
ABD soft, mild tenderness upon palpation, nd
Benítez with clear yellow urine
[2024-03-01 11:05] VITALS: BP 110/72
--- NOTE | 2024-03-01 11:15 | W.PN.HOSP.TC ---
Today's Communication/Plan
-
d/c
Assessment / Plan
Assessment / Plan
pt is a 48 year old female
Fecal Impaction/Rectal Stool Ball--Has had narrow caliber stools, diarrhea since procedure for hemorrhoids--cleared for d/c by surgery--cont bowel regimen
Urinary Retention--Secondary to fecal impaction as above
Citrobacter UTI--rocephin to oral at d/c
DVT Prophylaxis: SCDs
Code Status: Full
Anticipated Discharge: Today
Subjective/Interval History
-
Date of Service: March 01, 2024
pt cleared for d/c by surgery
Objective Data
-
Labs:
Laboratory Results
03/01/24
08:00
WBC 5.9
Hgb 11.0 L
Hct 32.2 L
Plt Count 214
Vital Signs:
max temp for 24 hours
03/01/24
07:25
Temp 98.2 F
Vital Signs
Temp Pulse Resp BP Pulse Ox
98.2 F 76 18 105/65 99
03/01/24 07:25 03/01/24 07:25 03/01/24 07:25 03/01/24 07:25 03/01/24 11:14
I&O
02/29/24 03/01/24 03/02/24
06:59 06:59 06:59
Intake Total 2160 / 2160 1320 / 1320
Output Total 1100 / 1100 450 / 450
Balance 1060 / 1060 870 / 870
Review of Systems
-
All other systems: Reviewed and negative
Physical Exam
-
General: Well Developed, Well Nourished and No Apparent Distress
HEENT: Normocephalic and Atraumatic
Respiratory: Clear to Auscultation; Negative Wheezes or Rhonchi
Cardiac: Regular Rhythm and S1/S2; Negative Murmur
GI: Soft, Nontender, Nondistended and Normal Bowel Sounds
Musculoskeletal: No Clubbing, No Cyanosis and No Edema
--- NOTE | 2024-03-01 13:52 | W.DCSUMMARY ---
Discharge Summary
Discharge Data
Date of Admission: 02/28/24
Date of Discharge: 03/01/24
-
Pending Results: No
Hospital Course
Primary care physician : Not listed
Principal Discharge diagnosis : Fecal impaction/rectal stool ball, recent hemorrhoid surgery, urinary retention secondary to fecal impaction, Citrobacter urinary tract infection
Chronic Discharge diagnosis : None
Hospital Course : Patient was a 48-year-old female with a history of hemorrhoids who had surgery on January 15 who presented complaining of inability to pass stool or urinate. Patient stated that she had hemorrhoidectomy in [place] with
Jen. After the surgery, she was on a liquid diet for 2 weeks and pain was controlled with Tylenol and Advil. For the 9 days prior to this admission, she had difficulty moving her bowels, had pain and pressure in the rectal area and perineum.
She produced very small caliber of stool. Patient was noted to be retaining urine and had a Benítez catheter placed in the emergency department which drained 1400 mL of urine. Patient was admitted.
Problem #1: Fecal impaction/rectal stool ball. Patient was seen in consultation by general surgery. She was started on a bowel regimen and symptoms did improve. She was tolerating a regular diet. There were no plans for any surgical
intervention. Patient has been instructed to stay on her bowel regimen. She does have a follow-up with her surgeon tomorrow March 02, 2024.
Problem #2: Urinary retention secondary to fecal impaction. Patient was found to have urinary retention and a Benítez catheter was placed which drained 1400 mL of urine. This was felt to be secondary to the fecal impaction. Patient's catheter was
discontinued and she was able to void on her own.
Problem #3: Citrobacter urinary tract infection. It is unclear if this was related to a Benítez catheter or not. Patient had a urine culture which was positive for Citrobacter. She will be discharged home with 5 more days of Keflex to complete her
course.
Patient is stable for discharge home at this time. If there are any questions regarding this dictation or hospital stay, please do not hesitate to call. Our office number is [phone].
Discharge Plan
-
Patient Disposition: Home (Routine Discharge)
Discharge Diagnosis/Procedures: Fecal impaction s/p hemorrhoid surgery, Urinary retention, Citrobacter UTI
Condition: Good
Diet: Regular
Additional Diets: Increase your fiber intake as able
Activity: As tolerated
Driving Restrictions: No driving for 24 hours
Bathing Restrictions: None
Blood Work: None
Others Tests: None
Activity Restrictions/Additional Instructions:
Schedule follow up with your colorectal surgeon as previously planned
Referrals:
PRIVATE,PHYSICIAN [Family Provider] -
Additional Discharge Medication Instructions: Continue with bowel regimen, MiraLAX daily and colace twice a day for the next week or until discontinued by PCP or surgeon, take milk of magnesium as needed for constipation
Prescriptions:
New
polyethylene glycol 3350 [HealthyLax] 17 gram Powder In Packet
17 g PO DAILY 7 Days Qty: 14 0RF
dibucaine 1 % Ointment
1 applic topical TIDPRN PRN (Reason: rectal discomfort) 30 Days Qty: 28 0RF
docusate sodium 100 mg capsule
100 mg PO BID Qty: 60 0RF
cephalexin 500 mg capsule
500 mg PO BID Qty: 10 0RF
Discharge Orders:
Discharge Patient (As Directed); Ordered 03/01/24
Ordered By: Staci Valdez
Discharge Date and Time
Discharge Date/Time: 03/01/24 14:00
Print Language: FIJIAN
--- NOTE | 2024-03-01 14:57 | PN.CDI ---
CDI
- -
CDI:
Physician Documentation Request
Admit Date: 02/28/24 05:16
Dear Doctor Higinio,
Patient is admitted for management of fecal Impaction/Rectal Stool Ball-after recent hemorrhoidectomy.
Please clarify if a relationship exist between these conditions:
Yes, fecal impaction is related to/associated with/due to recent hemorrhoidectomy/procedure
No, fecal impaction is not related to/associated with/due to recent hemorrhoidectomy/procedure
Unable to determine
Use of terms such as suspected, likely, concern for, or probable (associated with a specific diagnosis that is being evaluated, monitored, or treated as if it exists) are acceptable and can be coded in the inpatient setting, when documented at the
time of discharge.
Thank you,
Bibiana Camarena RN, BSN
CDI Specialist
tiger text
Please use your independent medical judgment in providing your response.
== END 2024-03-01 14:00 | disposition home or self-care (01) | DRG 394 ==
LOC: 2 NORTH 05:16
PROVIDERS: Clinical Nurse Specialist Family Health; Internal Medicine; ADMITTING PHYSICIAN Hospitalist; ATTENDING PHYSICIAN Internal Medicine; CONSULT PHYSICIAN Surgery; EMERGENCY PHYSICIAN Emergency Medicine
DX: K91.89 Other postprocedural complications and disorders of digestive system (principal); N39.0 Urinary tract infection, site not specified; T83.518A Infection and inflammatory reaction due to other urinary catheter, initial encounter; K59.4 Anal spasm; B96.89 Other specified bacterial agents as the cause of diseases classified elsewhere; K56.41 Fecal impaction; R33.8 Other retention of urine; Y83.8 Other surgical procedures as the cause of abnormal reaction of the patient, or of later complication, without mention of misadventure at the time of the procedure; Y73.8 Miscellaneous gastroenterology and urology devices associated with adverse incidents, not elsewhere classified
CPT/HCPCS: 51702; 51798; 74018; 74022; 80048; 80053; 81003; 81015; 82248; 85025; 85027; 85610; 85730; 87077; 87086; 87186; 96374; 99285